=== PATIENT | female | born 1955 | race Caucasian/White ===

== ENCOUNTER 2021-01-02 17:34 | Emergency (ER) | payer OTHER ==
[~2021-01-02] VITALS: Ht 165.1 cm; Wt 107.5 kg
[~2021-01-02 17:34] MED LIST: ALBIPROI; ALBU4CRA; AMIO200 PO; AMOCLA875 PO; AZIT250 PO; CEFU500 PO; COMBIVENT RESPIM4 GM; CYAN1000I; Cardizem CD 12120 MG PO; DRON400T; FAMO20 PO; FEXPSEER; FLUSAL5005 INH; FLUT.05NI; METO50ER PO; Percocet 5-3251 EACH PO; Xanax0.25 MG PO; [UNRECOGNIZED DRUG - OTHER] PO
== END 2021-01-02 20:45 | disposition home or self-care (01) ==
LOC: ER 17:34
DX: S27.329A Contusion of lung, unspecified, initial encounter (principal); S80.02XA Contusion of left knee, initial encounter; Z91.09 Other allergy status, other than to drugs and biological substances; Z79.899 Other long term (current) drug therapy; W01.10XA Fall on same level from slipping, tripping and stumbling with subsequent striking against unspecified object, initial encounter
CPT/HCPCS: 71046; 73562-LT; 96372; 99283-25; J1885

== ENCOUNTER → 2023-12-31 | Outpatient (CLI) | payer OTHER ==
[2023-12-31 12:28] LABS: BASOPHILS ABSOLUTE AUTO 0.03 K/mm3 (0.00-0.23); BASOPHILS PERCENT AUTO 1 % (0-2); EOSINOPHILS ABSOLUTE AUTO 0.28 K/mm3 (0.00-0.68); EOSINOPHILS PERCENT AUTO 5 % (0-6); Hematocrit 39.6 % (33.0-51.0); Hemoglobin 12.7 g/dL (11.5-16.0); IMMATURE GRAN ABSOLUTE AUTO 0.01 K/mm3 (0.00-0.10); IMMATURE GRAN PERCENT AUTO 0 % (0-1); LYMPHOCYTES ABSOLUTE AUTO 1.18 K/mm3 (0.84-5.20); LYMPHOCYTES PERCENT AUTO 23 % (21-46); MONOCYTES ABSOLUTE AUTO 0.38 K/mm3 (0.16-1.47); MONOCYTES PERCENT AUTO 7 % (4-13); Mean Corpuscular HGB Conc 32.1 g/dL (31.5-36.5); Mean Corpuscular Volume 94 fL (80-100); NEUTROPHILS ABSOLUTE AUTO 3.36 K/mm3 (1.96-9.15); NEUTROPHILS PERCENT AUTO 64 % (41-73); Platelet Count 216 K/mm3 (150-400); RDW Coefficient Variation 12.2 % (11.7-14.2); RDW Standard Deviation 41.8 fL (35.1-46.3); Red Blood Cell Count 4.23 M/mm3 (3.80-5.20); White Blood Cell Count 5.24 K/mm3 (4.00-11.30)
[2023-12-31 12:57] LABS: Alanine Aminotransfer (ALT/SGP 17 U/L (12-78); Albumin, Blood 3.5 g/dL (3.4-5.0); Alk Phos 108 U/L (50-136); Anion Gap 6 mmol/L (3-11); Aspartate Aminotrans (AST/SGOT 19 U/L (12-37); Bilirubin, Total 0.7 mg/dL (0.1-1.0); Blood Urea Nitrogen 13 mg/dL (8-24); Bun/Creatinine Ratio 18.8 (12.0-20.0); CHOL/HDL RATIO 2.5; CO2, Blood 31 mmol/L (21-32); Calcium, Blood 8.6 mg/dL (8.5-10.1); Chloride, Blood 108 mmol/L (98-108); Cholesterol 167 mg/dL (50-200); Creatinine, Blood 0.69 mg/dL (0.40-1.00); Globulin, Blood 3.6 g/dL (2.2-4.0); Glomerular Filtration Rate 93 (60-); Glucose, Blood 90 mg/dL (70-99); HDL Cholesterol 66 mg/dL (>39); LDL/HDL RATIO 1.3; Low Density Lipoprotein Chol 84 mg/dL (0-110); Potassium, Blood 3.9 mmol/L (3.5-5.5); Sodium, Blood 141 mmol/L (136-145); Total Protein, Blood 7.1 g/dL (6.4-8.2); Triglycerides 87 mg/dL (30-160); Very Low Density Lipoprot Chol 17 mg/dL (6-32)
== END ==
LOC: LAB 11:05 → LAB SHORT 11:05
PROVIDERS: Family Medicine
DX: I10 Essential (primary) hypertension (principal); D51.0 Vitamin B12 deficiency anemia due to intrinsic factor deficiency; R53.83 Other fatigue; R73.01 Impaired fasting glucose
CPT/HCPCS: 80053; 80061; 82607; 83036; 84443; 85025